=== PATIENT | female | born 1935 | race Caucasian/White ===

== ENCOUNTER 2017-10-28 06:11 | Day surgery (SDC) | payer MEDICARE, OTHER ==
[2017-10-27 09:37] VITALS: BMI 15.6
[~2017-10-28 06:11] MED LIST: Cyclopentolate 1% Opth Drop 2 ML BOT FS SCH; EPINEPHrine 0.3 MG in Ophthalmic Irrigation Solution 500 ML FS SCH; Phenylephrine HCl 2.5% Ophth Soln 5 ML BOT FS SCH
[2017-10-28] MEDS ORDERED: Phenylephrine HCl 2.5% Ophth Soln 5 ML BOT ONE (07:04)
[2017-10-28] MEDS ORDERED: Cyclopentolate 1% Opth Drop 2 ML BOT ONE (07:04)
[2017-10-28] MEDS ORDERED: Diprivan 20 ML ONE (07:57)
[2017-10-28] MEDS ORDERED: Ondansetron HCl/PF 4 MG/2 ML Vial ONE ×2 (07:57→14:26)
[2017-10-28] MEDS ORDERED: Midazolam HCl 2 mg/2 ml Vial ONE (07:57)
--- NOTE | 2017-10-28 09:18 | OP ---
DATE OF PROCEDURE: 10/28/2017 PREOPERATIVE DIAGNOSIS: Retained lens fragments in the eye after cataract surgery. POSTOPERATIVE DIAGNOSIS: Retained lens fragments in the eye after cataract surgery. PROCEDURE PERFORMED: Pars plana vitrectomy, lens fragment removal, right eye. SURGEON: Dr. Church. ANESTHESIA: Local with monitored anesthesia care. PROCEDURE IN DETAIL: The patient was identified in the preoperative holding area. Appropriate infor med consent for the planned surgical procedure on the right eye had been obtained. The patient was t ransported to the operative suite where appropriate cardiopulmonary monitoring was established. Loca l anesthesia was obtained using retrobulbar and modified Van Lint lid block using 50/50 mixture of 4% lidocaine and 0.75% bupivacaine. The patient was prepped and draped in the usual sterile manner for ophthalmic surgery on the right eye. Lid speculum was placed in the right eye. The 25-gauge trocar s were placed in conjunctiva and sclera supratemporally, inferotemporally, and supranasally. Infusio n line was placed inferotemporally. Light pipe and vitreous cutter were inserted into the eye. Core of vitrectomy was performed. Posterior hyaloid face was noted to be elevated. Lens fragments were released from the vitreous and allowed to fall into the posterior pole. Fragmatome was inserted thro ugh a 20 gauge sclerotomy superiorly and lens fragments were emulsified. Sclerotomy was closed with 7-0 Vicryl suture. Additional vitrectomy was performed cleaning up residual lens fragments. Prophy lactic laser was placed behind the sclerotomy sites. No holes, breaks or tears were identified. Tro cars were removed and the eye was noted to retain pressure well. Retrobulbar Kenalog and subconjunct ival Ancef were placed. Antibiotic ointment was placed, and the eye was patched and shielded. The p atient was taken the postoperative recovery unit in good condition having suffered no immediate perio perative complication.
[2017-10-28] MEDS ORDERED: Propofol 200 MG/20 ML VIAL ONE (14:26)
== END 2017-10-28 09:40 | disposition home or self-care (01) ==
LOC: SDC 06:11
PROVIDERS: ATTEND Ophthalmology Retina Specialist
PROC: 08DJ3ZZ Extraction of Right Lens, Percutaneous Approach (ICD-10-PCS; principal; 2017-10-28)
PROC: 08B43ZZ Excision of Right Vitreous, Percutaneous Approach (ICD-10-PCS; 2017-10-28)
DX: H59.021 Cataract (lens) fragments in eye following cataract surgery, right eye (principal); H43.311 Vitreous membranes and strands, right eye; I10 Essential (primary) hypertension; Z79.899 Other long term (current) drug therapy; Z98.41 Cataract extraction status, right eye; Z98.42 Cataract extraction status, left eye; Z96.1 Presence of intraocular lens
CPT/HCPCS: J0171; J2250; J2405; J2704